=== PATIENT | male | born 1970 | race African-American/Black ===

== ENCOUNTER 2021-05-05 16:35 | Inpatient (IN) | payer MEDICAID ==
[~2021-05-05] VITALS: Ht 167.6 cm; Wt 74.1 kg
[2021-05-05] MEDS ORDERED: LABETALOL HCL 200 MG TAB PO ONE (19:00)
[2021-05-05 19:10] LABS: Albumin 4.1 g/dL (3.4-5.0); Calcium 8.2 mg/dL (8.5-10.1); Potassium 3.4 mmol/L (3.5-5.1)
[2021-05-05 19:15] LABS: BUN/Creatinine Ratio 3.9; Bilirubin, Total 0.5 mg/dL (0.2-1.0)
[2021-05-05 19:18] LABS: Basophils # (auto) 0 10 ^3/uL (0-0.2); Basophils % (auto) 0.5 % (0.0-2.0); Eosinophils # (auto) 0.1 10 ^3/uL (0-0.8); Eosinophils % (auto) 1.4 % (0.0-7.0); Hematocrit 34.3 % (41.0-53.0); Hemoglobin 11.1 g/dL (13.5-17.5); Lymphocytes # (auto) 0.9 10 ^3/uL (0.4-5.4); Lymphocytes % (auto) 11.2 % (10.0-50.0); Mean Corpuscular Hemoglobin 30.5 pg (28.0-32.0); Mean Corpuscular Hgb Conc. 32.4 g/dL (32.0-36.0); Mean Corpuscular Volume 94.2 fL (80.0-100.0); Monocytes # (auto) 0.4 10 ^3/uL (0-1.3); Monocytes % (auto) 4.5 % (0.0-12.0); Neutrophils # (auto) 6.4 10 ^3/uL (1.6-8.6); Neutrophils % (auto) 82.4 % (37.0-80.0); Red Blood Cells 3.64 10^6/uL (4.5-5.90); Red Cell Distribution Width 15.5 % (11.8-14.3); White Blood Cell 7.8 10^3/uL (4.4-10.8)
[2021-05-05] MEDS ORDERED: LIDOCAINE HCL 2% TOP JELLY 5ML TOP ONE (20:45)
[2021-05-05] MEDS ORDERED: ONDANSETRON HCL 4 MG/2 ML VIAL IV ONE (21:00)
[2021-05-05] MEDS ORDERED: MORPHINE SULFATE 4 MG/ML SYR/VIAL IV ONE (21:00)
[2021-05-05] MEDS ORDERED: HYDROmorphone HCL 2 MG/ML VL IV ONE (23:10)
[2021-05-06] MEDS ORDERED: ACETAMINOPHEN 325 MG TAB PO PRN (00:45)
[2021-05-06] MEDS ORDERED: HYDROcodone-ACET 5/325MG TAB PO PRN (00:45)
[2021-05-06] MEDS ORDERED: DOCUSATE SOD 100 MG CAP PO PRN (00:45)
[2021-05-06] MEDS ORDERED: SODIUM CHLORIDE 0.9% 1,000 ML IV SCH (00:45)
[2021-05-06] MEDS ORDERED: ONDANSETRON HCL 4 MG/2 ML VIAL IV PRN (00:45)
[2021-05-06] MEDS ORDERED: TEMAZEPAM 15 MG CAP PO PRN (00:45)
[2021-05-06] MEDS ORDERED: NITROGLYCERIN 0.4 MG SL TAB SL PRN (01:45)
[2021-05-06] MEDS ORDERED: MORPHINE SULFATE INJECTION 2 MG/ML SYRG IV PRN (01:45)
[2021-05-06] MEDS: POTASSIUM CHL 20MEQ/100ML 100 ML IV SCH ×2 (01:55→04:33)
[2021-05-06] MEDS: HYDROmorphone HCL 2 MG/ML VL IV PRN ×4 (03:46→22:36)
[2021-05-06] MEDS: hydrALAZINE HCL 20 MG/ML VL IV PRN ×2 (05:42→12:16)
[2021-05-06 08:21] LABS: Basophils # (auto) 0 10 ^3/uL (0-0.2); Basophils % (auto) 0.4 % (0.0-2.0); Eosinophils # (auto) 0.1 10 ^3/uL (0-0.8); Eosinophils % (auto) 1.1 % (0.0-7.0); Hematocrit 34.5 % (41.0-53.0); Hemoglobin 11.8 g/dL (13.5-17.5); Lymphocytes # (auto) 0.9 10 ^3/uL (0.4-5.4); Lymphocytes % (auto) 12.1 % (10.0-50.0); Mean Corpuscular Hemoglobin 32.2 pg (28.0-32.0); Mean Corpuscular Hgb Conc. 34.2 g/dL (32.0-36.0); Mean Corpuscular Volume 94.4 fL (80.0-100.0); Monocytes # (auto) 0.4 10 ^3/uL (0-1.3); Monocytes % (auto) 5.8 % (0.0-12.0); Neutrophils # (auto) 6.1 10 ^3/uL (1.6-8.6); Neutrophils % (auto) 80.6 % (37.0-80.0); Red Blood Cells 3.65 10^6/uL (4.5-5.90); Red Cell Distribution Width 15.6 % (11.8-14.3); White Blood Cell 7.6 10^3/uL (4.4-10.8)
[2021-05-06 08:32] LABS: Albumin 3.8 g/dL (3.4-5.0); Calcium 8.2 mg/dL (8.5-10.1)
[2021-05-06 08:35] LABS: BUN/Creatinine Ratio 3.9; Bilirubin, Total 0.4 mg/dL (0.2-1.0); Total Protein 7.7 g/dL (6.4-8.2)
[2021-05-06] MEDS ORDERED: MINOXIDIL 2.5 MG TAB PO ONE (09:45)
[2021-05-06] MEDS: FAMOTIDINE (10MG/ML) 2ML VL IV SCH (10:44)
[2021-05-06] MEDS: METOPROLOL TARTRATE 50 MG TAB PO SCH ×2 (10:46→22:34)
[2021-05-06] MEDS ORDERED: NIFEdipine ER 30 MG TAB PO ONE (12:15)
[2021-05-06] MEDS ORDERED: BUMETANIDE 2.5mg/10ml (0.25 mg/ml) INJ IV ONE (12:15)
[2021-05-06] MEDS ORDERED: hydrALAZINE HCL 20 MG/ML VL IV PRN (15:30)
[2021-05-06 22:00] VITALS: BP 160/73
[2021-05-07 05:00] VITALS: BP 138/64
[2021-05-07 09:00] VITALS: BP 148/72
[2021-05-07 09:06] LABS: Urine Bacteria MANY /hpf (None Seen); Urine Blood 2+ /uL (Negative); Urine Budding Yeast FEW /hpf (None Seen); Urine Mucus FEW (None Seen); Urine Specific Gravity 1.013 (1.001-1.035); Urine WBC 567 /hpf (0 - 3); Urine WBC Clumps PRESENT /hpf (None Seen)
[2021-05-07] MEDS: METOPROLOL TARTRATE 50 MG TAB PO SCH ×2 (10:19→22:18)
[2021-05-07] MEDS: FAMOTIDINE (10MG/ML) 2ML VL IV SCH ×2 (10:19→10:20)
[2021-05-07 10:31] LABS: Basophils # (auto) 0 10 ^3/uL (0-0.2); Basophils % (auto) 0.6 % (0.0-2.0); Eosinophils # (auto) 0.1 10 ^3/uL (0-0.8); Eosinophils % (auto) 1.9 % (0.0-7.0); Hematocrit 34.4 % (41.0-53.0); Hemoglobin 11.1 g/dL (13.5-17.5); Lymphocytes % (auto) 14.3 % (10.0-50.0); Mean Corpuscular Hemoglobin 30.3 pg (28.0-32.0); Mean Corpuscular Hgb Conc. 32.4 g/dL (32.0-36.0); Mean Corpuscular Volume 93.5 fL (80.0-100.0); Monocytes # (auto) 0.5 10 ^3/uL (0-1.3); Monocytes % (auto) 7.1 % (0.0-12.0); Neutrophils # (auto) 5.5 10 ^3/uL (1.6-8.6); Neutrophils % (auto) 76.1 % (37.0-80.0); Nucleated Red Blood Cells % 0.1 %; Red Blood Cells 3.68 10^6/uL (4.5-5.90); Red Cell Distribution Width 15.3 % (11.8-14.3); White Blood Cell 7.2 10^3/uL (4.4-10.8)
[2021-05-07] MEDS: HYDROmorphone HCL 2 MG/ML VL IV PRN ×3 (11:06→23:16)
[2021-05-07 11:08] LABS: Potassium 4.7 mmol/L (3.5-5.1)
[2021-05-07 11:14] LABS: Albumin 3.4 g/dL (3.4-5.0); BUN/Creatinine Ratio 4.1; Bilirubin, Total 0.4 mg/dL (0.2-1.0); Calcium 8.3 mg/dL (8.5-10.1); Total Protein 6.7 g/dL (6.4-8.2)
[2021-05-07 13:00] VITALS: BP 145/77
[2021-05-07] MEDS ORDERED: cefTRIAXone SOD 500 MG VL IV SCH (13:00)
[2021-05-07] MEDS: TAMSULOSIN HYDROCHLORIDE 0.4 MG CAP PO SCH (13:49)
[2021-05-07] MEDS ORDERED: LIDOCAINE 2% JELLY 11ml (GLYDO) UR STA (16:08)
[2021-05-07 17:00] VITALS: BP 145/74
[2021-05-07 22:00] VITALS: BP 146/70
[2021-05-08 05:00] VITALS: BP 141/76
[2021-05-08] MEDS ORDERED: SODIUM CHL 0.9% 1000 ML BAG XX ONE (07:00)
[2021-05-08 08:30] VITALS: BP 156/83
[2021-05-08] MEDS ORDERED: cefTRIAXone 1GM/50ML D5W 50 ML IV SCH (09:00)
[2021-05-08] MEDS: TAMSULOSIN HYDROCHLORIDE 0.4 MG CAP PO SCH (09:21)
[2021-05-08] MEDS: HYDROmorphone HCL 2 MG/ML VL IV PRN (09:22)
[2021-05-08] MEDS: FAMOTIDINE (10MG/ML) 2ML VL IV SCH (09:23)
[2021-05-08] MEDS: METOPROLOL TARTRATE 50 MG TAB PO SCH (10:00)
[2021-05-08 13:30] VITALS: BP 150/87
== END 2021-05-08 18:00 | disposition left against medical advice (07) | DRG 463 ==
LOC: ER 16:35 → OVERFLOW 05-06 01:44 → WEST WING 05-06 16:25
PROVIDERS: ADMIT Nurse Practitioner Family; ATTEND Internal Medicine
DX: N30.90 Cystitis, unspecified without hematuria (principal); I12.0 Hypertensive chronic kidney disease with stage 5 chronic kidney disease or end stage renal disease; E11.22 Type 2 diabetes mellitus with diabetic chronic kidney disease; D63.1 Anemia in chronic kidney disease; N18.6 End stage renal disease; B96.89 Other specified bacterial agents as the cause of diseases classified elsewhere; N40.1 Benign prostatic hyperplasia with lower urinary tract symptoms; N13.8 Other obstructive and reflux uropathy; R33.8 Other retention of urine; E87.6 Hypokalemia; E55.9 Vitamin D deficiency, unspecified; F32.A Depression, unspecified; H54.8 Legal blindness, as defined in USA; M21.611 Bunion of right foot; M21.612 Bunion of left foot; M89.8X9 Other specified disorders of bone, unspecified site; N52.9 Male erectile dysfunction, unspecified; Z20.822 Contact with and (suspected) exposure to COVID-19; Z53.29 Procedure and treatment not carried out because of patient's decision for other reasons; Z99.2 Dependence on renal dialysis; Z82.49 Family history of ischemic heart disease and other diseases of the circulatory system; Z90.01 Acquired absence of eye; Z83.3 Family history of diabetes mellitus; Q54.9 Hypospadias, unspecified
CPT/HCPCS: 36415; 71045; 74176; 80053; 81001; 82306; 83970; 84100; 84484; 85025; 87086; 87088; 87186; 87426; 93005; 96374; 96375; G0378; J0696; J2405; J3480; J3490

== ENCOUNTER 2021-06-07 23:11 | Inpatient (IN) | payer MEDICAID ==
[~2021-06-07] VITALS: Ht 167.6 cm; Wt 72.0 kg
[2021-06-07] MEDS ORDERED: amLODIPine BESYLATE 5 MG TAB PO ONE (23:30)
[2021-06-08 00:04] LABS: Basophils # (auto) 0.1 10 ^3/uL (0-0.2); Basophils % (auto) 0.9 % (0.0-2.0); Eosinophils # (auto) 0.2 10 ^3/uL (0-0.8); Eosinophils % (auto) 2.8 % (0.0-7.0); Hematocrit 32.1 % (41.0-53.0); Hemoglobin 10.6 g/dL (13.5-17.5); Lymphocytes # (auto) 1.4 10 ^3/uL (0.4-5.4); Lymphocytes % (auto) 23.1 % (10.0-50.0); Mean Corpuscular Hemoglobin 29.1 pg (28.0-32.0); Monocytes # (auto) 0.5 10 ^3/uL (0-1.3); Monocytes % (auto) 8.8 % (0.0-12.0); Neutrophils % (auto) 64.4 % (37.0-80.0); Nucleated Red Blood Cells % 0.1 %; Red Blood Cells 3.65 10^6/uL (4.5-5.90); Red Cell Distribution Width 15.2 % (11.8-14.3); White Blood Cell 6.2 10^3/uL (4.4-10.8)
[2021-06-08] MEDS ORDERED: hydrALAZINE HCL 20 MG/ML VL ONE (00:57)
[2021-06-08] MEDS ORDERED: hydrALAZINE HCL 20 MG/ML VL IV ONE (01:00)
[2021-06-08 01:01] LABS: Albumin 3.6 g/dL (3.4-5.0); Calcium 7.1 mg/dL (8.5-10.1)
[2021-06-08 01:20] LABS: BUN/Creatinine Ratio 5.8; Bilirubin, Total 0.4 mg/dL (0.2-1.0); Magnesium 2.4 mg/dL (1.6-2.6); Total Protein 7.4 g/dL (6.4-8.2)
[2021-06-08 01:23] LABS: Potassium 5.7 mmol/L (3.5-5.1)
[2021-06-08] MEDS ORDERED: SODIUM BICARBONATE 8.4% INJ 50ML SYRINGE IV ONE (03:00)
[2021-06-08] MEDS ORDERED: SODIUM ZIRCONIUM CYCL 10 GM PAK PO ONE (03:00)
[2021-06-08] MEDS ORDERED: CALCIUM GLUC 1,000mg/50ml-NS 50 ML IV ONE (03:00)
[2021-06-08] MEDS ORDERED: HYDROcodone-ACET 5/325MG TAB PO ONE (03:00)
[2021-06-08] MEDS ORDERED: LABETALOL HCL 5 MG/ML 4ML SYRINGE IV ONE (05:00)
[2021-06-08] MEDS ORDERED: ONDANSETRON HCL 4 MG/2 ML VIAL IV ONE (05:15)
[2021-06-08] MEDS ORDERED: MORPHINE SULFATE INJECTION 2 MG/ML SYRG IV ONE (05:15)
[2021-06-08] MEDS ORDERED: HYDROcodone-ACET 7.5/325MG TAB PO ONE (05:15)
[2021-06-08] MEDS ORDERED: FUROSEMIDE 20 MG/2 ML VIAL IV ONE (07:30)
[2021-06-08] MEDS ORDERED: hydrALAZINE HCL 20 MG/ML VL IV PRN (07:30)
[2021-06-08] MEDS ORDERED: FUROSEMIDE 40 MG/4 ML VIAL IV ONE (07:30)
[2021-06-08] MEDS ORDERED: DOCUSATE SOD 100 MG CAP PO PRN (07:30)
[2021-06-08] MEDS ORDERED: MORPHINE SULFATE 4 MG/ML SYR/VIAL IV PRN (07:30)
[2021-06-08] MEDS ORDERED: ACETAMINOPHEN 325 MG TAB PO PRN (07:30)
[2021-06-08] MEDS ORDERED: MORPHINE SULFATE INJECTION 2 MG/ML SYRG IV PRN ×2 (08:15)
[2021-06-08] MEDS ORDERED: NITROGLYCERIN 0.4 MG SL TAB SL PRN (08:15)
[2021-06-08] MEDS: HEPARIN SODIUM (PORCINE) 5000 UNITS/ML 1ML VIAL SC SCH ×2 (10:15→22:00)
[2021-06-08] MEDS: FAMOTIDINE (10MG/ML) 2ML VL IV SCH (10:21)
[2021-06-08 10:38] LABS: Basophils # (auto) 0 10 ^3/uL (0-0.2); Basophils % (auto) 0.8 % (0.0-2.0); Eosinophils # (auto) 0.1 10 ^3/uL (0-0.8); Eosinophils % (auto) 2.7 % (0.0-7.0); Hemoglobin 9.9 g/dL (13.5-17.5); Lymphocytes # (auto) 1.4 10 ^3/uL (0.4-5.4); Lymphocytes % (auto) 25.5 % (10.0-50.0); Mean Corpuscular Hemoglobin 29.4 pg (28.0-32.0); Mean Corpuscular Hgb Conc. 33.1 g/dL (32.0-36.0); Monocytes # (auto) 0.5 10 ^3/uL (0-1.3); Monocytes % (auto) 8.3 % (0.0-12.0); Neutrophils # (auto) 3.5 10 ^3/uL (1.6-8.6); Neutrophils % (auto) 62.7 % (37.0-80.0); Nucleated Red Blood Cells % 0.1 %; Red Blood Cells 3.37 10^6/uL (4.5-5.90); Red Cell Distribution Width 15.2 % (11.8-14.3); White Blood Cell 5.5 10^3/uL (4.4-10.8)
[2021-06-08 10:55] LABS: INR 1.1 (0.9-1.15); Partial Thromboplastin Time 26.5 sec (23.6-33.0)
[2021-06-08 10:56] LABS: Albumin 3.4 g/dL (3.4-5.0); Calcium 7.6 mg/dL (8.5-10.1); Potassium 5.3 mmol/L (3.5-5.1)
[2021-06-08 10:59] LABS: BUN/Creatinine Ratio 5.8; Bilirubin, Total 0.3 mg/dL (0.2-1.0); Total Protein 6.8 g/dL (6.4-8.2)
[2021-06-08 14:00] VITALS: BP 188/81
[2021-06-08] MEDS ORDERED: ENALAPRILAT 1.25 MG/ML-1ML VIAL IV PRN (14:30)
[2021-06-08] MEDS: MORPHINE SULFATE 4 MG/ML SYR/VIAL IV PRN (14:34)
[2021-06-08] MEDS: ONDANSETRON HCL 4 MG/2 ML VIAL IV PRN ×2 (14:34→18:25)
[2021-06-08] MEDS: SODIUM CHLOR 0.9% PF (SALINE LOCK) 10ML VIAL/SYR IV SCH ×2 (14:37→22:00)
[2021-06-08] MEDS ORDERED: TRAZ1TAB12 PO (16:38)
[2021-06-08] MEDS ORDERED: HYDR50TA15 PO (16:38)
[2021-06-08] MEDS ORDERED: AMLO-489 PO (16:38)
[2021-06-08] MEDS ORDERED: SEVE800T PO (16:38)
[2021-06-08 16:48] VITALS: BP 168/91
[2021-06-08] MEDS ORDERED: hydrALAZINE HCL 10 MG TAB PO ONE (18:00)
[2021-06-08] MEDS: hydrALAZINE HCL 10 MG TAB PO PRN (18:26)
[2021-06-08] MEDS: HYDROcodone-ACET 5/325MG TAB PO PRN ×2 (18:32→22:33)
[2021-06-08 22:00] VITALS: BP 185/95
[2021-06-09 05:00] VITALS: BP 185/86
[2021-06-09 05:31] LABS: Basophils # (auto) 0 10 ^3/uL (0-0.2); Basophils % (auto) 0.7 % (0.0-2.0); Eosinophils # (auto) 0.1 10 ^3/uL (0-0.8); Eosinophils % (auto) 1.6 % (0.0-7.0); Hematocrit 32.2 % (41.0-53.0); Hemoglobin 10.8 g/dL (13.5-17.5); Lymphocytes # (auto) 1.1 10 ^3/uL (0.4-5.4); Lymphocytes % (auto) 19.9 % (10.0-50.0); Mean Corpuscular Hemoglobin 29.8 pg (28.0-32.0); Mean Corpuscular Hgb Conc. 33.4 g/dL (32.0-36.0); Mean Corpuscular Volume 89.1 fL (80.0-100.0); Monocytes # (auto) 0.5 10 ^3/uL (0-1.3); Monocytes % (auto) 8.3 % (0.0-12.0); Neutrophils # (auto) 3.8 10 ^3/uL (1.6-8.6); Neutrophils % (auto) 69.5 % (37.0-80.0); Nucleated Red Blood Cells % 0.3 %; Red Blood Cells 3.62 10^6/uL (4.5-5.90); Red Cell Distribution Width 15.2 % (11.8-14.3); White Blood Cell 5.5 10^3/uL (4.4-10.8)
[2021-06-09] MEDS: MORPHINE SULFATE 4 MG/ML SYR/VIAL IV PRN ×3 (05:36→20:30)
[2021-06-09] MEDS: hydrALAZINE HCL 10 MG TAB PO PRN ×2 (05:36→09:36)
[2021-06-09 05:39] LABS: Albumin 3.6 g/dL (3.4-5.0); Calcium 8.1 mg/dL (8.5-10.1)
[2021-06-09 05:43] LABS: Bilirubin, Total 0.4 mg/dL (0.2-1.0); Total Protein 6.9 g/dL (6.4-8.2)
[2021-06-09 05:45] LABS: Potassium 5.6 mmol/L (3.5-5.1)
[2021-06-09] MEDS: SODIUM CHLOR 0.9% PF (SALINE LOCK) 10ML VIAL/SYR IV SCH ×3 (06:00→23:06)
[2021-06-09 06:11] LABS: BUN/Creatinine Ratio 5.5
[2021-06-09 09:00] VITALS: BP 207/109
[2021-06-09] MEDS: FAMOTIDINE (10MG/ML) 2ML VL IV SCH (09:01)
[2021-06-09] MEDS: HEPARIN SODIUM (PORCINE) 5000 UNITS/ML 1ML VIAL SC SCH ×2 (10:31→22:00)
[2021-06-09] MEDS: amLODIPine BESYLATE 5 MG TAB PO SCH (11:45)
[2021-06-09] MEDS: SODIUM ZIRCONIUM CYCL 10 GM PAK PO SCH ×3 (11:45→23:08)
[2021-06-09] MEDS: hydrALAZINE HCL 25 MG TAB PO SCH ×3 (12:00→23:07)
[2021-06-09] MEDS: SEVELAMER 800 MG TAB PO SCH ×2 (12:00→17:11)
[2021-06-09 13:00] VITALS: BP 216/100
[2021-06-09] MEDS: ONDANSETRON HCL 4 MG/2 ML VIAL IV PRN (13:10)
[2021-06-09 17:00] VITALS: BP 192/114
[2021-06-09 20:00] VITALS: BP 187/98
[2021-06-09 22:00] VITALS: BP 187/98
[2021-06-09] MEDS: LABETALOL HCL 200 MG TAB PO SCH (23:10)
[2021-06-10] MEDS: MORPHINE SULFATE 4 MG/ML SYR/VIAL IV PRN ×3 (04:19→18:58)
[2021-06-10 05:00] VITALS: BP 149/79
[2021-06-10] MEDS: SODIUM ZIRCONIUM CYCL 10 GM PAK PO SCH ×3 (06:00→22:00)
[2021-06-10] MEDS: SODIUM CHLOR 0.9% PF (SALINE LOCK) 10ML VIAL/SYR IV SCH ×3 (06:01→23:58)
[2021-06-10] MEDS: hydrALAZINE HCL 25 MG TAB PO SCH ×4 (06:02→23:58)
[2021-06-10] MEDS ORDERED: SODIUM CHL 0.9% 1000 ML BAG XX ONE (07:00)
[2021-06-10] MEDS: SEVELAMER 800 MG TAB PO SCH ×3 (08:00→17:16)
[2021-06-10] MEDS: FAMOTIDINE (10MG/ML) 2ML VL IV SCH (08:32)
[2021-06-10] MEDS: HEPARIN SODIUM (PORCINE) 5000 UNITS/ML 1ML VIAL SC SCH ×2 (08:32→22:00)
[2021-06-10] MEDS: amLODIPine BESYLATE 5 MG TAB PO SCH (08:33)
[2021-06-10] MEDS: LABETALOL HCL 200 MG TAB PO SCH ×2 (08:33→23:59)
[2021-06-10 09:00] VITALS: BP 168/82
[2021-06-10 12:00] VITALS: BP 144/72
[2021-06-10 16:49] VITALS: BP 157/87
[2021-06-10 20:00] VITALS: BP 155/75
[2021-06-10] MEDS ORDERED: EPOETIN ALFA-EPBX 10,000 UNIT/1ML VIAL SC ONE (21:00)
[2021-06-10 22:00] VITALS: BP 155/75
[2021-06-11] MEDS: MORPHINE SULFATE 4 MG/ML SYR/VIAL IV PRN ×2 (00:51→18:11)
[2021-06-11 05:00] VITALS: BP 149/76
[2021-06-11] MEDS: SODIUM CHLOR 0.9% PF (SALINE LOCK) 10ML VIAL/SYR IV SCH ×3 (06:00→21:39)
[2021-06-11] MEDS: hydrALAZINE HCL 25 MG TAB PO SCH ×4 (06:00→21:39)
[2021-06-11] MEDS: SODIUM ZIRCONIUM CYCL 10 GM PAK PO SCH ×4 (06:00→21:41)
[2021-06-11 08:30] VITALS: BP 153/98
[2021-06-11] MEDS: SEVELAMER 800 MG TAB PO SCH ×3 (08:40→18:13)
[2021-06-11 09:00] VITALS: BP 153/77
[2021-06-11] MEDS: LABETALOL HCL 200 MG TAB PO SCH ×2 (09:15→21:40)
[2021-06-11] MEDS: amLODIPine BESYLATE 5 MG TAB PO SCH (09:15)
[2021-06-11] MEDS: HEPARIN SODIUM (PORCINE) 5000 UNITS/ML 1ML VIAL SC SCH ×2 (09:23→21:40)
[2021-06-11] MEDS ORDERED: CATHFLO ACTIVASE (ALTEPLASE) 2 MG VIAL IV ONE (10:30)
[2021-06-11 13:00] VITALS: BP 167/89
[2021-06-11 17:00] VITALS: BP 144/82
[2021-06-11] MEDS: ONDANSETRON HCL 4 MG/2 ML VIAL IV PRN (18:19)
[2021-06-11 20:31] VITALS: BP 163/79
[2021-06-12] MEDS: MORPHINE SULFATE 4 MG/ML SYR/VIAL IV PRN (03:41)
[2021-06-12 05:00] VITALS: BP 159/99
[2021-06-12] MEDS: SODIUM CHLOR 0.9% PF (SALINE LOCK) 10ML VIAL/SYR IV SCH (05:41)
[2021-06-12] MEDS: SODIUM ZIRCONIUM CYCL 10 GM PAK PO SCH (05:42)
[2021-06-12] MEDS: hydrALAZINE HCL 25 MG TAB PO SCH ×2 (05:42→13:24)
[2021-06-12 08:10] VITALS: BP 155/83
[2021-06-12] MEDS: ONDANSETRON HCL 4 MG/2 ML VIAL IV PRN (08:10)
[2021-06-12] MEDS: SEVELAMER 800 MG TAB PO SCH (08:22)
[2021-06-12 09:00] VITALS: BP 155/83
[2021-06-12] MEDS: FAMOTIDINE (10MG/ML) 2ML VL IV SCH (09:52)
[2021-06-12] MEDS: amLODIPine BESYLATE 5 MG TAB PO SCH (09:53)
[2021-06-12] MEDS: LABETALOL HCL 200 MG TAB PO SCH (09:53)
[2021-06-12] MEDS: HEPARIN SODIUM (PORCINE) 5000 UNITS/ML 1ML VIAL SC SCH ×2 (09:55→10:00)
[2021-06-12] MEDS ORDERED: AMLO-496 PO (10:28)
[2021-06-12] MEDS ORDERED: SEVE800T PO (10:28)
[2021-06-12] MEDS ORDERED: LABE200T6 GT (10:28)
[2021-06-12] MEDS ORDERED: HYDR50TA15 PO (10:28)
[2021-06-12 12:41] VITALS: BP 134/76
== END 2021-06-12 14:20 | disposition home or self-care (01) | DRG 52 ==
LOC: EDBD 23:11 → ER 23:11 → OVERFLOW 06-08 08:04 → CENTRAL 06-08 13:49
PROVIDERS: ADMIT Nurse Practitioner Family; ATTEND Family Medicine
PROC: 5A1D70Z Performance of Urinary Filtration, Intermittent, Less than 6 Hours Per Day (ICD-10-PCS; principal; 2021-06-10)
DX: I67.4 Hypertensive encephalopathy (principal); N17.9 Acute kidney failure, unspecified; I12.0 Hypertensive chronic kidney disease with stage 5 chronic kidney disease or end stage renal disease; D63.1 Anemia in chronic kidney disease; E83.51 Hypocalcemia; E11.22 Type 2 diabetes mellitus with diabetic chronic kidney disease; N18.6 End stage renal disease; E11.42 Type 2 diabetes mellitus with diabetic polyneuropathy; I16.1 Hypertensive emergency; E87.5 Hyperkalemia; N40.0 Benign prostatic hyperplasia without lower urinary tract symptoms; N25.0 Renal osteodystrophy; H54.61 Unqualified visual loss, right eye, normal vision left eye; E11.40 Type 2 diabetes mellitus with diabetic neuropathy, unspecified; Z82.49 Family history of ischemic heart disease and other diseases of the circulatory system; Z83.3 Family history of diabetes mellitus; Z91.19 Patient's noncompliance with other medical treatment and regimen; Z91.15 Patient's noncompliance with renal dialysis; Z99.2 Dependence on renal dialysis; Z20.822 Contact with and (suspected) exposure to COVID-19
CPT/HCPCS: 36415; 80053; 83735; 84484; 85025; 85610; 85730; 87081; 87426; 90935; 96365; 96375; G0378; J2405; J3490

== ENCOUNTER 2021-08-15 20:06 | Emergency (ER) | payer MEDICAID ==
[~2021-08-15] VITALS: Ht 167.6 cm; Wt 63.5 kg
[~2021-08-15 20:06] MED LIST: AMLO-489 PO; AMLO-496 PO; HYDR50TA15 PO; LABE200T6 GT; SEVE800T PO; TRAZ1TAB12 PO
[2021-08-15 20:50] LABS: Basophils # (auto) 0 10 ^3/uL (0-0.2); Basophils % (auto) 0.6 % (0.0-2.0); Eosinophils # (auto) 0.1 10 ^3/uL (0-0.8); Eosinophils % (auto) 3.4 % (0.0-7.0); Hematocrit 22.5 % (41.0-53.0); Hemoglobin 7.6 g/dL (13.5-17.5); Lymphocytes % (auto) 31.7 % (10.0-50.0); Mean Corpuscular Hemoglobin 30.5 pg (28.0-32.0); Mean Corpuscular Hgb Conc. 33.9 g/dL (32.0-36.0); Monocytes # (auto) 0.3 10 ^3/uL (0-1.3); Monocytes % (auto) 7.7 % (0.0-12.0); Neutrophils # (auto) 1.8 10 ^3/uL (1.6-8.6); Neutrophils % (auto) 56.6 % (37.0-80.0); Red Cell Distribution Width 16.1 % (11.8-14.3); White Blood Cell 3.3 10^3/uL (4.4-10.8)
[2021-08-15 21:09] LABS: Albumin 3.1 g/dL (3.4-5.0); Calcium 7.3 mg/dL (8.5-10.1); Potassium 4.8 mmol/L (3.5-5.1)
[2021-08-15 21:11] LABS: BUN/Creatinine Ratio 4.4
[2021-08-15 21:16] LABS: Bilirubin, Total 0.4 mg/dL (0.2-1.0); Total Protein 6.3 g/dL (6.4-8.2)
[2021-08-15] MEDS ORDERED: ONDANSETRON HCL 4 MG/2 ML VIAL IV ONE (21:45)
[2021-08-15] MEDS ORDERED: MORPHINE SULFATE 4 MG/ML SYR/VIAL IV ONE (21:45)
[2021-08-15 22:48] LABS: Urine Bacteria FEW /hpf (None Seen); Urine Blood 1+ /uL (Negative); Urine Hyaline Cast FEW /lpf (0 - 2); Urine Specific Gravity 1.013 (1.001-1.035); Urine WBC 9 /hpf (0 - 3)
[2021-08-15] MEDS ORDERED: traZODone HCL 50 MG TAB PO SCH (23:42)
[2021-08-16] MEDS: hydrALAZINE HCL 25 MG TAB PO SCH ×2 (01:08→11:20)
[2021-08-16] MEDS ORDERED: HYDROcodone-ACET 5/325MG TAB PO ONE (01:45)
[2021-08-16 02:25] VITALS: BP 140/70
[2021-08-16] MEDS ORDERED: HYDROcodone-ACET 10/325MG TAB PO ONE (02:45)
[2021-08-16] MEDS ORDERED: SEVELAMER 800 MG TAB PO SCH (06:00)
[2021-08-16] MEDS ORDERED: LABETALOL HCL 200 MG TAB GT SCH (10:00)
[2021-08-16] MEDS ORDERED: amLODIPine BESYLATE 5 MG TAB PO SCH (10:00)
[2021-08-16 10:21] LABS: Hematocrit 30.5 % (41.0-53.0); Hemoglobin 10.1 g/dL (13.5-17.5)
[2021-08-16 14:12] VITALS: BP 147/85
== END 2021-08-16 14:15 | disposition home or self-care (01) ==
LOC: EDBD 20:06 → ER 20:06
DX: D64.9 Anemia, unspecified (principal); E11.22 Type 2 diabetes mellitus with diabetic chronic kidney disease; I12.0 Hypertensive chronic kidney disease with stage 5 chronic kidney disease or end stage renal disease; N18.6 End stage renal disease
CPT/HCPCS: 36415; 36430; 80053; 81001; 84484; 85014; 85018; 85025; 86850; 86900; 86901; 86920; 93005; 96374; 96375; 99285; J2270; J2405; P9016

== ENCOUNTER 2021-08-19 00:33 | Emergency (ER) | payer MEDICAID ==
[~2021-08-19] VITALS: Ht 167.6 cm; Wt 72.6 kg
[2021-08-19 02:25] LABS: Basophils # (auto) 0 10 ^3/uL (0-0.2); Basophils % (auto) 0.6 % (0.0-2.0); Eosinophils # (auto) 0.1 10 ^3/uL (0-0.8); Eosinophils % (auto) 0.9 % (0.0-7.0); Hematocrit 31.5 % (41.0-53.0); Hemoglobin 10.5 g/dL (13.5-17.5); Lymphocytes # (auto) 0.7 10 ^3/uL (0.4-5.4); Lymphocytes % (auto) 9.4 % (10.0-50.0); Mean Corpuscular Hgb Conc. 33.4 g/dL (32.0-36.0); Mean Corpuscular Volume 86.8 fL (80.0-100.0); Monocytes # (auto) 0.4 10 ^3/uL (0-1.3); Monocytes % (auto) 5.5 % (0.0-12.0); Neutrophils # (auto) 5.8 10 ^3/uL (1.6-8.6); Neutrophils % (auto) 83.6 % (37.0-80.0); Nucleated Red Blood Cells % 0.1 %; Red Blood Cells 3.63 10^6/uL (4.5-5.90); Red Cell Distribution Width 19.9 % (11.8-14.3); White Blood Cell 6.9 10^3/uL (4.4-10.8)
[2021-08-19 02:46] LABS: Albumin 3.2 g/dL (3.4-5.0); BUN/Creatinine Ratio 3.7; Calcium 7.6 mg/dL (8.5-10.1); Potassium 4.7 mmol/L (3.5-5.1)
[2021-08-19 02:49] LABS: Bilirubin, Total 0.6 mg/dL (0.2-1.0); Total Protein 6.6 g/dL (6.4-8.2)
[2021-08-19] MEDS ORDERED: ONDANSETRON HCL 4 MG/2 ML VIAL IV ONE (05:30)
[2021-08-19 06:00] VITALS: BP 184/82
[2021-08-19] MEDS ORDERED: METOCLOPRAMIDE HCL 5MG/ml INJ 2ml VIAL IV ONE (08:30)
[2021-08-19] MEDS ORDERED: KETOROLAC TROMETH 30 MG/ML 1ML VIAL IV ONE (08:30)
== END 2021-08-19 11:05 | disposition home or self-care (01) ==
LOC: ER 00:33 → EDBD 00:33 → ER 11:05
DX: R42 Dizziness and giddiness (principal); R51.9 Headache, unspecified; R10.9 Unspecified abdominal pain; I12.0 Hypertensive chronic kidney disease with stage 5 chronic kidney disease or end stage renal disease; E11.22 Type 2 diabetes mellitus with diabetic chronic kidney disease; N18.6 End stage renal disease; Z99.2 Dependence on renal dialysis; Z79.899 Other long term (current) drug therapy; W19.XXXA Unspecified fall, initial encounter; Y93.89 Activity, other specified; Y92.89 Other specified places as the place of occurrence of the external cause; Y99.8 Other external cause status
CPT/HCPCS: 36415; 70450; 72125; 72131; 80053; 85025; 96374; 96375; 99285; J1885; J2405; J2765; 93005

== ENCOUNTER 2021-08-26 14:55 | Inpatient (IN) | payer MEDICAID ==
[~2021-08-26] VITALS: Ht 167.6 cm; Wt 66.7 kg
[2021-08-26] MEDS ORDERED: LIDOCAINE 2% JELLY 11ml (GLYDO) ONE (15:33)
[2021-08-26] MEDS ORDERED: ONDANSETRON HCL 4 MG/2 ML VIAL IV ONE (16:45)
[2021-08-26] MEDS ORDERED: MORPHINE SULFATE 4 MG/ML SYR/VIAL IV ONE ×2 (16:45→22:30)
[2021-08-26 17:10] LABS: Basophils # (auto) 0 10 ^3/uL (0-0.2); Basophils % (auto) 0.6 % (0.0-2.0); Eosinophils # (auto) 0.1 10 ^3/uL (0-0.8); Eosinophils % (auto) 1.6 % (0.0-7.0); Hematocrit 33.6 % (41.0-53.0); Lymphocytes # (auto) 0.6 10 ^3/uL (0.4-5.4); Lymphocytes % (auto) 10.9 % (10.0-50.0); Mean Corpuscular Hemoglobin 29.1 pg (28.0-32.0); Mean Corpuscular Hgb Conc. 32.8 g/dL (32.0-36.0); Mean Corpuscular Volume 88.5 fL (80.0-100.0); Monocytes # (auto) 0.3 10 ^3/uL (0-1.3); Monocytes % (auto) 6.2 % (0.0-12.0); Neutrophils # (auto) 4.4 10 ^3/uL (1.6-8.6); Neutrophils % (auto) 80.7 % (37.0-80.0); Nucleated Red Blood Cells % 0.1 %; Red Cell Distribution Width 19.7 % (11.8-14.3); White Blood Cell 5.5 10^3/uL (4.4-10.8)
[2021-08-26 17:27] LABS: Albumin 3.2 g/dL (3.4-5.0); BUN/Creatinine Ratio 4.3; Calcium 8.5 mg/dL (8.5-10.1); Potassium 5.2 mmol/L (3.5-5.1)
[2021-08-26 17:30] LABS: Bilirubin, Total 0.6 mg/dL (0.2-1.0); Total Protein 6.8 g/dL (6.4-8.2)
[2021-08-26 18:46] LABS: Basophils # (auto) 0 10 ^3/uL (0-0.2); Basophils % (auto) 0.6 % (0.0-2.0); Eosinophils # (auto) 0.1 10 ^3/uL (0-0.8); Eosinophils % (auto) 1.2 % (0.0-7.0); Hematocrit 32.3 % (41.0-53.0); Hemoglobin 10.6 g/dL (13.5-17.5); Lymphocytes # (auto) 0.8 10 ^3/uL (0.4-5.4); Lymphocytes % (auto) 13.7 % (10.0-50.0); Mean Corpuscular Hemoglobin 28.9 pg (28.0-32.0); Mean Corpuscular Hgb Conc. 32.9 g/dL (32.0-36.0); Mean Corpuscular Volume 87.6 fL (80.0-100.0); Monocytes # (auto) 0.3 10 ^3/uL (0-1.3); Monocytes % (auto) 6.1 % (0.0-12.0); Neutrophils # (auto) 4.4 10 ^3/uL (1.6-8.6); Neutrophils % (auto) 78.4 % (37.0-80.0); Nucleated Red Blood Cells % 0.1 %; Red Blood Cells 3.68 10^6/uL (4.5-5.90); Red Cell Distribution Width 19.8 % (11.8-14.3); White Blood Cell 5.6 10^3/uL (4.4-10.8)
[2021-08-26] MEDS ORDERED: LABETALOL HCL 5 MG/ML 4ML SYRINGE IV ONE ×2 (18:54→19:00)
[2021-08-26] MEDS ORDERED: LISINOPRIL 20 MG TAB PO SCH (23:00)
[2021-08-26] MEDS ORDERED: ONDANSETRON HCL 4 MG/2 ML VIAL IV PRN (23:00)
[2021-08-26] MEDS ORDERED: HYDROcodone-ACET 5/325MG TAB PO PRN (23:00)
[2021-08-26] MEDS ORDERED: METOPROLOL TARTRATE 1MG/1ML-5ML VIAL IV PRN (23:00)
[2021-08-26] MEDS ORDERED: ACETAMINOPHEN 325 MG TAB PO PRN (23:00)
[2021-08-27] VITALS (45 sets, daily range): BP systolic 116–184; BP diastolic 31–90
[2021-08-27] MEDS: METOPROLOL TARTRATE 25 MG TAB PO SCH ×3 (00:33→21:54)
[2021-08-27] MEDS: hydrALAZINE HCL 20 MG/ML VL IV PRN ×2 (00:34→00:44)
[2021-08-27] MEDS ORDERED: SODIUM CHL 0.9% 1000 ML BAG XX ONE ×2 (06:30→11:15)
[2021-08-27] MEDS ORDERED: CARV12.544 PO (10:48)
[2021-08-27] MEDS ORDERED: CARV6.2551 PO (10:48)
[2021-08-27 13:34] LABS: Basophils # (auto) 0 10 ^3/uL (0-0.2); Basophils % (auto) 0.9 % (0.0-2.0); Eosinophils # (auto) 0.1 10 ^3/uL (0-0.8); Eosinophils % (auto) 2.4 % (0.0-7.0); Hematocrit 35.6 % (41.0-53.0); Hemoglobin 11.7 g/dL (13.5-17.5); Lymphocytes # (auto) 0.5 10 ^3/uL (0.4-5.4); Lymphocytes % (auto) 12.4 % (10.0-50.0); Mean Corpuscular Hemoglobin 28.9 pg (28.0-32.0); Mean Corpuscular Volume 87.7 fL (80.0-100.0); Monocytes # (auto) 0.4 10 ^3/uL (0-1.3); Monocytes % (auto) 8.4 % (0.0-12.0); Neutrophils # (auto) 3.3 10 ^3/uL (1.6-8.6); Neutrophils % (auto) 75.9 % (37.0-80.0); Red Blood Cells 4.06 10^6/uL (4.5-5.90); Red Cell Distribution Width 19.6 % (11.8-14.3); White Blood Cell 4.4 10^3/uL (4.4-10.8)
[2021-08-27] MEDS: FAMOTIDINE 20 MG TAB PO SCH (14:31)
[2021-08-27] MEDS: NIFEdipine ER 30 MG TAB PO SCH (14:32)
[2021-08-27] MEDS: MORPHINE SULFATE INJECTION 2 MG/ML SYRG IV PRN ×2 (14:33→20:00)
[2021-08-27 16:02] LABS: Albumin 3.2 g/dL (3.4-5.0); Calcium 8.7 mg/dL (8.5-10.1); Potassium 4.4 mmol/L (3.5-5.1)
[2021-08-27 16:04] LABS: Bilirubin, Total 0.7 mg/dL (0.2-1.0); Total Protein 7.1 g/dL (6.4-8.2)
[2021-08-27] MEDS ORDERED: FUROSEMIDE 20 MG/2 ML VIAL IV SCH (18:00)
[2021-08-27] MEDS: TAMSULOSIN HYDROCHLORIDE 0.4 MG CAP PO SCH (18:45)
[2021-08-27] MEDS: FUROSEMIDE 100 MG/10ML VIAL IV SCH (20:28)
[2021-08-27] MEDS ORDERED: EPOETIN ALFA-EPBX 10,000 UNIT/1ML VIAL SC ONE (21:00)
[2021-08-27] MEDS ORDERED: EPOETIN ALFA-EPBX 4,000 UNIT/ML VIAL SC ONE (21:00)
[2021-08-28] VITALS (9 sets, daily range): BP systolic 111–135; BP diastolic 47–66
[2021-08-28] MEDS: MORPHINE SULFATE 4 MG/ML SYR/VIAL IV PRN ×3 (02:52→15:49)
[2021-08-28] MEDS: FUROSEMIDE 100 MG/10ML VIAL IV SCH ×2 (05:36→18:07)
[2021-08-28] MEDS: METOPROLOL TARTRATE 25 MG TAB PO SCH ×2 (09:22→22:36)
[2021-08-28] MEDS: FAMOTIDINE 20 MG TAB PO SCH (09:22)
[2021-08-28] MEDS: NIFEdipine ER 30 MG TAB PO SCH (09:23)
[2021-08-28 10:12] LABS: Urine Bacteria MANY /hpf (None Seen); Urine Blood 2+ /uL (Negative); Urine Budding Yeast OCCASIONAL /hpf (None Seen); Urine Specific Gravity 1.027 (1.001-1.035); Urine WBC 252 /hpf (0 - 3); Urine WBC Clumps PRESENT /hpf (None Seen)
[2021-08-28] MEDS ORDERED: VANCOMYCIN PER PHARMACY 0 MG IV SCH (10:15)
[2021-08-28 11:17] LABS: Basophils # (auto) 0 10 ^3/uL (0-0.2); Basophils % (auto) 0.6 % (0.0-2.0); Eosinophils # (auto) 0.1 10 ^3/uL (0-0.8); Eosinophils % (auto) 2.1 % (0.0-7.0); Hematocrit 31.4 % (41.0-53.0); Hemoglobin 10.4 g/dL (13.5-17.5); Lymphocytes % (auto) 21.3 % (10.0-50.0); Mean Corpuscular Hgb Conc. 33.2 g/dL (32.0-36.0); Mean Corpuscular Volume 87.3 fL (80.0-100.0); Monocytes # (auto) 0.4 10 ^3/uL (0-1.3); Monocytes % (auto) 8.9 % (0.0-12.0); Neutrophils # (auto) 3.3 10 ^3/uL (1.6-8.6); Neutrophils % (auto) 67.1 % (37.0-80.0); Red Cell Distribution Width 19.4 % (11.8-14.3); White Blood Cell 4.9 10^3/uL (4.4-10.8)
[2021-08-28 11:25] LABS: Calcium 8.4 mg/dL (8.5-10.1); Magnesium 2.9 mg/dL (1.6-2.6); Potassium 4.6 mmol/L (3.5-5.1)
[2021-08-28 11:30] LABS: BUN/Creatinine Ratio 3.9; Bilirubin, Total 0.5 mg/dL (0.2-1.0); Total Protein 6.8 g/dL (6.4-8.2)
[2021-08-28] MEDS: GABAPENTIN 100 MG CAP PO SCH ×2 (11:45→22:37)
[2021-08-28] MEDS ORDERED: VANCOMYCIN 1GM/250ML 250 ML IV ONE (12:00)
[2021-08-28] MEDS: MICAFUNGIN SODIUM 100 MG in SODIUM CHL 0.9% 100 ML IV SCH (14:45)
[2021-08-28] MEDS: TAMSULOSIN HYDROCHLORIDE 0.4 MG CAP PO SCH (18:07)
[2021-08-29] MEDS: MORPHINE SULFATE 4 MG/ML SYR/VIAL IV PRN ×3 (04:20→19:04)
[2021-08-29] MEDS: FUROSEMIDE 100 MG/10ML VIAL IV SCH ×2 (05:50→17:02)
[2021-08-29] MEDS ORDERED: SODIUM CHL 0.9% 1000 ML BAG XX ONE (07:00)
[2021-08-29 09:00] VITALS: BP 131/63
[2021-08-29] MEDS: GABAPENTIN 100 MG CAP PO SCH ×2 (09:52→21:54)
[2021-08-29] MEDS: FAMOTIDINE 20 MG TAB PO SCH (09:53)
[2021-08-29] MEDS: NIFEdipine ER 30 MG TAB PO SCH (12:18)
[2021-08-29] MEDS: METOPROLOL TARTRATE 25 MG TAB PO SCH ×2 (12:18→21:56)
[2021-08-29] MEDS: MICAFUNGIN SODIUM 100 MG in SODIUM CHL 0.9% 100 ML IV SCH (12:42)
[2021-08-29 13:00] VITALS: BP 134/73
[2021-08-29] MEDS ORDERED: VANCOMYCIN 500 MG in D5W 5% 100 ML IV ONE (16:00)
[2021-08-29 16:22] LABS: INR 1.05 (0.9-1.15); Partial Thromboplastin Time 33.8 sec (23.6-33.0)
[2021-08-29 17:00] VITALS: BP 134/68
[2021-08-29] MEDS: TAMSULOSIN HYDROCHLORIDE 0.4 MG CAP PO SCH (17:02)
[2021-08-29] MEDS: levoFLOXacin 500 MG TAB PO SCH (18:57)
[2021-08-29 19:37] LABS: Urine Amorphous Crystal FEW /hpf (None Seen); Urine Bacteria FEW /hpf (None Seen); Urine Blood 1+ /uL (Negative); Urine Mucus FEW (None Seen); Urine Specific Gravity 1.024 (1.001-1.035); Urine WBC 426 /hpf (0 - 3); Urine WBC Clumps PRESENT /hpf (None Seen)
[2021-08-30] VITALS (8 sets, daily range): BP systolic 106–146; BP diastolic 52–86
[2021-08-30] MEDS: FUROSEMIDE 100 MG/10ML VIAL IV SCH ×2 (05:31→17:49)
[2021-08-30] MEDS: MORPHINE SULFATE 4 MG/ML SYR/VIAL IV PRN ×2 (08:29→16:37)
[2021-08-30] MEDS: GABAPENTIN 100 MG CAP PO SCH ×2 (10:00→22:18)
[2021-08-30] MEDS: METOPROLOL TARTRATE 25 MG TAB PO SCH ×2 (10:00→22:20)
[2021-08-30] MEDS: NIFEdipine ER 30 MG TAB PO SCH (10:00)
[2021-08-30] MEDS ORDERED: IODIXANOL 320MG/ML 100ML BTL IV ONE (12:44)
[2021-08-30] MEDS ORDERED: LIDOCAINE 2%HCL (LOCAL ANESTH.) INJ 10ml MDV ONE (12:51)
[2021-08-30] MEDS ORDERED: MIDAZOLAM HCL 2MG/2ML 2ml VIAL (1mg/ml) ONE (12:52)
[2021-08-30] MEDS ORDERED: fentaNYL CITRATE 100 MCG/2 ML VL ONE (12:52)
[2021-08-30] MEDS ORDERED: HEPARIN SODIUM (PORCINE) 5000 UNITS/ML 1ML VIAL ONE (13:21)
[2021-08-30 17:05] LABS: Basophils # (auto) 0.2 10 ^3/uL (0-0.2); Eosinophils # (auto) 0.1 10 ^3/uL (0-0.8); Eosinophils % (auto) 2.1 % (0.0-7.0); Hematocrit 34.2 % (41.0-53.0); Hemoglobin 11.3 g/dL (13.5-17.5); Lymphocytes # (auto) 1.1 10 ^3/uL (0.4-5.4); Lymphocytes % (auto) 21.3 % (10.0-50.0); Mean Corpuscular Hemoglobin 29.1 pg (28.0-32.0); Mean Corpuscular Volume 88.1 fL (80.0-100.0); Monocytes # (auto) 0.4 10 ^3/uL (0-1.3); Neutrophils # (auto) 3.5 10 ^3/uL (1.6-8.6); Neutrophils % (auto) 66.6 % (37.0-80.0); Nucleated Red Blood Cells % 0.1 %; Red Blood Cells 3.88 10^6/uL (4.5-5.90); Red Cell Distribution Width 19.5 % (11.8-14.3); White Blood Cell 5.2 10^3/uL (4.4-10.8)
[2021-08-30 17:17] LABS: BUN/Creatinine Ratio 3.7; Calcium 8.9 mg/dL (8.5-10.1); Potassium 5.3 mmol/L (3.5-5.1)
[2021-08-30] MEDS: TAMSULOSIN HYDROCHLORIDE 0.4 MG CAP PO SCH (17:49)
[2021-08-30] MEDS ORDERED: HYDROmorphone HCL 2 MG/ML VL IV ONE (18:45)
[2021-08-31] MEDS: MORPHINE SULFATE 4 MG/ML SYR/VIAL IV PRN ×3 (01:56→22:20)
[2021-08-31] MEDS: FUROSEMIDE 100 MG/10ML VIAL IV SCH ×2 (06:22→18:29)
[2021-08-31] MEDS ORDERED: SODIUM CHL 0.9% 1000 ML BAG XX ONE (07:00)
[2021-08-31 09:57] VITALS: BP 144/69
[2021-08-31 13:00] VITALS: BP 161/83
[2021-08-31] MEDS: METOPROLOL TARTRATE 25 MG TAB PO SCH ×2 (13:22→22:01)
[2021-08-31] MEDS: NIFEdipine ER 30 MG TAB PO SCH (13:22)
[2021-08-31] MEDS: GABAPENTIN 100 MG CAP PO SCH ×2 (13:22→22:01)
[2021-08-31] MEDS: FAMOTIDINE 20 MG TAB PO SCH (13:22)
[2021-08-31 16:00] VITALS: BP 139/92
[2021-08-31] MEDS: TAMSULOSIN HYDROCHLORIDE 0.4 MG CAP PO SCH (18:29)
[2021-08-31] MEDS: levoFLOXacin 500 MG TAB PO SCH (18:29)
[2021-08-31] MEDS ORDERED: EPOETIN ALFA-EPBX 4,000 UNIT/ML VIAL SC ONE (21:00)
[2021-08-31 22:00] VITALS: BP 157/89
[2021-08-31] MEDS ORDERED: VANCOMYCIN 500 MG in D5W 5% 100 ML IV ONE (22:00)
[2021-09-01 06:00] VITALS: BP 129/72
[2021-09-01] MEDS: FUROSEMIDE 100 MG/10ML VIAL IV SCH (06:30)
[2021-09-01 09:00] VITALS: BP 116/63
[2021-09-01 10:30] LABS: Basophils # (auto) 0 10 ^3/uL (0-0.2); Basophils % (auto) 0.4 % (0.0-2.0); Eosinophils # (auto) 0.2 10 ^3/uL (0-0.8); Eosinophils % (auto) 2.7 % (0.0-7.0); Hematocrit 33.6 % (41.0-53.0); Hemoglobin 11.1 g/dL (13.5-17.5); Lymphocytes # (auto) 0.8 10 ^3/uL (0.4-5.4); Lymphocytes % (auto) 13.5 % (10.0-50.0); Mean Corpuscular Hemoglobin 29.1 pg (28.0-32.0); Mean Corpuscular Hgb Conc. 33.1 g/dL (32.0-36.0); Mean Corpuscular Volume 87.9 fL (80.0-100.0); Monocytes # (auto) 0.4 10 ^3/uL (0-1.3); Monocytes % (auto) 6.5 % (0.0-12.0); Neutrophils # (auto) 4.8 10 ^3/uL (1.6-8.6); Neutrophils % (auto) 76.9 % (37.0-80.0); Nucleated Red Blood Cells % 0.1 %; Red Blood Cells 3.83 10^6/uL (4.5-5.90); Red Cell Distribution Width 19.1 % (11.8-14.3); White Blood Cell 6.2 10^3/uL (4.4-10.8)
[2021-09-01 10:48] LABS: BUN/Creatinine Ratio 3.4; Calcium 9.2 mg/dL (8.5-10.1); Potassium 4.8 mmol/L (3.5-5.1)
[2021-09-01] MEDS ORDERED: AMLO-496 PO (10:55)
[2021-09-01] MEDS ORDERED: CARV12.544 PO (10:55)
[2021-09-01] MEDS ORDERED: GABA300C10 PO (10:55)
[2021-09-01] MEDS ORDERED: HYDR50TA15 PO (10:55)
[2021-09-01] MEDS ORDERED: NIFE1TAB31 PO (10:55)
[2021-09-01] MEDS ORDERED: HYDR-4902 PO (10:55)
[2021-09-01] MEDS: METOPROLOL TARTRATE 25 MG TAB PO SCH (10:57)
[2021-09-01] MEDS: GABAPENTIN 100 MG CAP PO SCH (10:58)
[2021-09-01] MEDS: NIFEdipine ER 30 MG TAB PO SCH (10:58)
[2021-09-01] MEDS: MORPHINE SULFATE 4 MG/ML SYR/VIAL IV PRN (11:31)
[2021-09-01 12:11] VITALS: BP 130/86
== END 2021-09-01 13:48 | disposition home or self-care (01) | DRG 470 ==
LOC: EDBD 14:55 → ER 14:55 → TELE 22:59 → ICU CENTRL 08-27 10:38 → TELE-WESTW 08-28 18:42
PROVIDERS: ADMIT Nurse Practitioner Family; ATTEND Nurse Practitioner Family
PROC: 5A1D70Z Performance of Urinary Filtration, Intermittent, Less than 6 Hours Per Day (ICD-10-PCS; 2021-08-27)
PROC: 5A1D70Z Performance of Urinary Filtration, Intermittent, Less than 6 Hours Per Day (ICD-10-PCS; 2021-08-29)
PROC: 0JPT3XZ Removal of Tunneled Vascular Access Device from Trunk Subcutaneous Tissue and Fascia, Percutaneous Approach (ICD-10-PCS; principal; 2021-08-30)
PROC: 0JH63XZ Insertion of Tunneled Vascular Access Device into Chest Subcutaneous Tissue and Fascia, Percutaneous Approach (ICD-10-PCS; 2021-08-30)
PROC: B5181ZA Fluoroscopy of Superior Vena Cava using Low Osmolar Contrast, Guidance (ICD-10-PCS; 2021-08-30)
PROC: B548ZZA Ultrasonography of Superior Vena Cava, Guidance (ICD-10-PCS; 2021-08-30)
PROC: 02H633Z Insertion of Infusion Device into Right Atrium, Percutaneous Approach (ICD-10-PCS; 2021-08-30)
DX: I12.0 Hypertensive chronic kidney disease with stage 5 chronic kidney disease or end stage renal disease (principal); N18.6 End stage renal disease; R78.81 Bacteremia; D63.1 Anemia in chronic kidney disease; N13.8 Other obstructive and reflux uropathy; E11.22 Type 2 diabetes mellitus with diabetic chronic kidney disease; T82.41XA Breakdown (mechanical) of vascular dialysis catheter, initial encounter; N39.0 Urinary tract infection, site not specified; B96.89 Other specified bacterial agents as the cause of diseases classified elsewhere; I16.0 Hypertensive urgency; E87.5 Hyperkalemia; F51.04 Psychophysiologic insomnia; N32.89 Other specified disorders of bladder; Z99.2 Dependence on renal dialysis; Z20.822 Contact with and (suspected) exposure to COVID-19; F32.A Depression, unspecified; G89.4 Chronic pain syndrome; I25.10 Atherosclerotic heart disease of native coronary artery without angina pectoris; M89.8X9 Other specified disorders of bone, unspecified site; N35.919 Unspecified urethral stricture, male, unspecified site; R33.8 Other retention of urine; Y83.8 Other surgical procedures as the cause of abnormal reaction of the patient, or of later complication, without mention of misadventure at the time of the procedure; N40.1 Benign prostatic hyperplasia with lower urinary tract symptoms; Q54.9 Hypospadias, unspecified; Z90.01 Acquired absence of eye; Z83.3 Family history of diabetes mellitus; Y92.89 Other specified places as the place of occurrence of the external cause
CPT/HCPCS: 36415; 36558; 36589; 51702; 71045; 76705; 76942; 77001; 80048; 80053; 80202; 81001; 82565; 83605; 83735; 85025; 85610; 85730; 87040; 87077; 87086; 87186; 90935; 93005; 93306; 96374; 96375; 96376; 99152; 99153; G0378; J1642; J2001; J2248; J2250; J2405; J3490; J7060; Q9967

== ENCOUNTER 2021-09-19 22:34 | Emergency (ER) | payer MEDICAID ==
[~2021-09-19] VITALS: Ht 170.2 cm; Wt 90.7 kg
[~2021-09-19 22:34] MED LIST changes: -AMLO-489 PO; +CARV12.544 PO; +GABA300C10 PO; +HYDR-4902 PO; +NIFE1TAB31 PO
[2021-09-19 23:20] LABS: Basophils # (auto) 0 10 ^3/uL (0-0.2); Basophils % (auto) 0.8 % (0.0-2.0); Eosinophils # (auto) 0.1 10 ^3/uL (0-0.8); Eosinophils % (auto) 2.7 % (0.0-7.0); Hematocrit 25.5 % (41.0-53.0); Hemoglobin 8.6 g/dL (13.5-17.5); Lymphocytes # (auto) 1.1 10 ^3/uL (0.4-5.4); Lymphocytes % (auto) 22.8 % (10.0-50.0); Mean Corpuscular Hemoglobin 30.3 pg (28.0-32.0); Mean Corpuscular Hgb Conc. 33.7 g/dL (32.0-36.0); Mean Corpuscular Volume 89.9 fL (80.0-100.0); Monocytes # (auto) 0.4 10 ^3/uL (0-1.3); Monocytes % (auto) 8.8 % (0.0-12.0); Neutrophils # (auto) 3.1 10 ^3/uL (1.6-8.6); Neutrophils % (auto) 64.9 % (37.0-80.0); Nucleated Red Blood Cells % 0.1 %; Red Blood Cells 2.83 10^6/uL (4.5-5.90); Red Cell Distribution Width 18.7 % (11.8-14.3); White Blood Cell 4.8 10^3/uL (4.4-10.8)
[2021-09-19 23:40] LABS: BUN/Creatinine Ratio 3.5; Calcium 6.6 mg/dL (8.5-10.1); Magnesium 2.2 mg/dL (1.6-2.6); Potassium 4.1 mmol/L (3.5-5.1)
[2021-09-19 23:43] LABS: Bilirubin, Total 0.4 mg/dL (0.2-1.0); Total Protein 6.1 g/dL (6.4-8.2)
[2021-09-20] MEDS: ACETAMINOPHEN 325 MG TAB PO ONE ×2 (01:14→01:23)
[2021-09-20 05:28] VITALS: BP 149/56
[2021-09-20 05:44] LABS: Urine Bacteria NONE SEEN /hpf (None Seen); Urine Blood TRACE /uL (Negative); Urine Hyaline Cast FEW /lpf (0 - 2); Urine Specific Gravity 1.017 (1.001-1.035); Urine WBC 7 /hpf (0 - 3)
== END 2021-09-20 06:46 | disposition home or self-care (01) ==
LOC: EDBD 22:34 → ER 22:34
DX: R07.89 Other chest pain (principal); E11.22 Type 2 diabetes mellitus with diabetic chronic kidney disease; I12.0 Hypertensive chronic kidney disease with stage 5 chronic kidney disease or end stage renal disease; N18.6 End stage renal disease; R42 Dizziness and giddiness; G89.29 Other chronic pain
CPT/HCPCS: 36415; 71045; 80053; 81001; 83735; 84484; 85025; 93005